=== PATIENT | female | born 1945 | race Two or more races ===

== ENCOUNTER 2017-10-14 15:04 | Emergency (ER) | payer MEDICAID ==
[~2017-10-14] VITALS: Ht 165.1 cm; Wt 90.7 kg
[2017-10-14 15:07] VITALS: BP 139/90
== END 2017-10-14 16:01 | disposition home or self-care (01) ==
LOC: ER 15:08
DX: L72.3 Sebaceous cyst (principal); Z95.0 Presence of cardiac pacemaker
CPT/HCPCS: 99281; A4606; Z7610; Z7502

== ENCOUNTER 2018-04-28 19:26 | Emergency (ER) | payer MEDICAID ==
[~2018-04-28] VITALS: Ht 165.1 cm; Wt 92.5 kg
--- NOTE | 2018-04-28 19:26 | NUR ---
BIB FAMILY; "RASH UPPER LEFT AND TORSO AREA X 12 DAYS" VSS NO ACUTE DISTRESS AT THIS TIME. BREATHING RATE WNL WITH ADEQUATE CHETS RISE/FALL. PT IS ALERT AND ORIENTED X3 ABLE TO MAKE NEEDS KNOWN [place] SPEAKING. SKIN WARM AND INTACT WITH REDNESS ON LEFT UPPER ARM AND TORSO. WILL CONTINUE TO MONITOR FOR ANY CHANGES DURING THE SHIFT.
--- NOTE | 2018-04-28 19:27 | NUR ---
ER MD GILLIS AT BEDSIDE
[2018-04-28] MEDS ORDERED: IV NS 0.9% 1,000 ML BAG IV ONE (20:00)
[2018-04-28] MEDS ORDERED: diphenhydrAMINE HCL 50 MG/ML VIAL IV ONE (20:00)
[2018-04-28] MEDS ORDERED: methylPREDNISolone SOD SUCC 125 MG/2ML VIAL IV ONE (20:00)
[2018-04-28] MEDS ORDERED: FAMOTIDINE/PF INJ 20 MG/2 ML VIAL IV ONE ×2 (20:00→20:04)
[2018-04-28] MEDS ORDERED: diphenhydrAMINE HCL 50 MG/ML VIAL ONE (20:04)
[2018-04-28] MEDS ORDERED: methylPREDNISolone SOD SUCC 125 MG/2ML VIAL ONE (20:04)
[2018-04-28 20:08] LABS: BASOPHILS # (AUTO) 0.1 /CMM (0.0-0.2); BASOPHILS % (AUTO) 0.8 % (0.0-2.0); EOSINOPHILS % (AUTO) 5.4 % (0.0-6.0); HEMATOCRIT 46 % (33-45); HEMOGLOBIN 15.3 g/dL (11.5-14.8); LYMPHOCYTES # (AUTO) 1.9 /CMM (0.8-4.8); LYMPHOCYTES % (AUTO) 28.8 % (20.0-44.0); MEAN CORPUSCULAR HEMOGLOBIN 29 PG (26.0-33.0); MEAN CORPUSCULAR HGB CONC 33 g/dl (31.0-36.0); MEAN CORPUSCULAR VOLUME 87 fL (82-100); MONOCYTES # (AUTO) 0.4 /CMM (0.1-1.30); MONOCYTES % (AUTO) 6.7 % (2.0-12.0); NEUTROPHILS # (AUTO) 3.8 /CMM (1.8-8.9); NEUTROPHILS % (AUTO) 58.3 % (43.0-81.0); PLATELET COUNT (AUTO) 285 /CMM (150-450); RDW COEFFICIENT OF VARIATION 12.5 (11.5-15.0); RED BLOOD CELL COUNT(AUTO) 5.37 MIL/uL (4.0-5.2); WHITE BLOOD COUNT (AUTO) 6.5 K/uL (4.3-11.0)
[2018-04-28 20:14] LABS: CALCIUM, SERUM 8.8 mg/dL (8.5-10.1); CARBON DIOXIDE 26 mmol/L (21-32); CHLORIDE 106 mmol/L (98-107); CREATININE 0.8 mg/dL (0.6-1.3); GLUCOSE 130 mg/dL (74-106); POTASSIUM 3.9 mmol/L (3.5-5.1); SODIUM SERUM 140 mmol/L (136-145); UREA NITROGEN, BLOOD 20 mg/dL (7-18)
[2018-04-28 20:21] LABS: ALANINE AMINOTRANSFERASE 22 U/L (12-78); ALBUMIN 3.6 g/dL (3.4-5.0); ALKALINE PHOSPHATASE 109 U/L (46-116); ASPARTATE AMINOTRANSFERASE 17 U/L (15-37); BILIRUBIN,DIRECT 0.1 mg/dL (0.0-0.2); BILIRUBIN,TOTAL 0.4 mg/dL (0.2-1.0); TOTAL PROTEIN, SERUM 7.4 g/dL (6.4-8.2)
--- NOTE | 2018-04-28 20:25 | NUR ---
D/C INSTRUCTIONS GIVEN BY SUNIL GILLIS. WILL CONTINUE TO MONITOR UNTIL IVF FINISHED
[2018-04-28 20:45] VITALS: BP 119/78
== END 2018-04-28 20:46 | disposition home or self-care (01) ==
LOC: ER 19:27
DX: T78.40XA Allergy, unspecified, initial encounter (principal); Z95.0 Presence of cardiac pacemaker; Z98.890 Other specified postprocedural states; X58.XXXA Exposure to other specified factors, initial encounter
CPT/HCPCS: 36415; 80048; 80076; 85025; 96374; 96375; 99284; A4606; J1200; J2930; J3490; J7030; Z7610